=== PATIENT | male | born 1980 | race Caucasian/White ===

== ENCOUNTER → 2018-04-06 08:40 | Outpatient (CLI) | payer BC, SELFPAY ==
[2018-04-06 12:47] LABS: Alanine Aminotransferase 35 U/L (12-78); Albumin Level 4.1 gm/dL (3.4-5.0); Albumin/Globulin Ratio 1.3 (1.1-1.8); Alkaline Phosphatase 95 U/L (46-116); Aspartate Amino Transferase 20 U/L (15-37); Bilirubin,Total 0.6 mg/dL (0.2-1.0); Blood Urea Nitrogen 15 mg/dL (7-18); Calcium 8.9 mg/dL (8.5-10.1); Carbon Dioxide 32 mmol/L (21.0-32.0); Chloride 106 mmol/L (98-107); Chol/HDL Ratio 2.3 (1-3.5); Cholesterol 148 mg/dL (140-200); Creatinine,Serum 1.18 mg/dL (0.70-1.30); Estimated Glomerular Filt Rate 70 ml/min (>60); GFR (African American) 85 ML/MIN (>60); Globulin 3.1 gm/dl (1.3-3.2); Glucose 87 mg/dL (74-106); HDL Cholesterol 63 mg/dL (27-67); LDL Cholesterol 77 mg/dL (0-130); Sodium 144 mmol/L (136-145); Total Protein,Serum 7.2 gm/dL (6.4-8.2); Triglycerides 41 mg/dL (30-200); VLDL Cholesterol 8 mg/dL (0-40)
== END ==
PROVIDERS: PCP Internal Medicine Adolescent Medicine; Visit Provider Nurse Practitioner Family
DX: E78.00 Pure hypercholesterolemia, unspecified (principal)
CPT/HCPCS: 36415; 80053; 80061

== ENCOUNTER 2018-07-11 15:30 | Outpatient (RCR) | payer BC, SELFPAY ==
--- NOTE | 2018-06-24 15:55 | HMH.PTOPEV ---
PT Outpatient Evaluation Rehab PT Outpatient Evaluation Start: 06/24/18 15:43 Freq: Status: Active Protocol: Document 06/24/18 15:44 SAW (Rec: 06/24/18 15:55 SAW [id number]) Electronically Signed By Sidney Saha, PT 06/24/18 15:44 Outpatient Therapy Subjective History Subjective History Pt reports B LBP since laying sod in January 2018. Pt reports R >L sided LBP with some referred pain into B glut mm area. Pt reports no radicular s/s, only mm soreness following sitting, bending, lifting activities. Chief Complaint Pain Stiff Symptom Type Ache Throb Sharp Dull Symptoms Relieved By Rest/Positioning Symptoms Aggravated By Bending/Stooping Physical Activity Lifting Prior Functional Limitations Lifting Sitting Bending/Stooping Current Functional Limitations Lifting Driving Sitting Bending/Stooping Symptom Description Constant but Variable Level of pain today (0-10) 3 Pain scale - at its best (0-10) 2 Pain scale - at its worst (0-10) 5 Lumbopelvic Eval Posture Thoracic Spine Posture Standing Position Neutral Lumbar Spine Posture Standing Position Neutral Assistive device Assistive Devices None / NA Palapation tenderness bilateral lumbar spinal tenderness Yes: 2-3/4 paraspinal tenderness Yes: 3/4 buttock tenderness Yes: 1/4 Lumbar/Sacral Palpation Findings Tenderness Trigger Point Accessory Movement L-spine Vertebrae Accessory Movements Central P/A [place] that Elicit Symptoms L3 bilateral L4 bilateral L5 bilateral Range of Motion Lumbar Spine Active Flexion Range of 0-71 Motion (degrees) Lumbar Spine Active Extension Range of 0-20 Motion (degrees) Left Lumbar Spine Lateral Flexion Active 0-40 Range of Motion (degrees) Right Lumbar Spine Lateral Flexion 0-40 Active Range of Motion (degrees) Lumbar Spine ROM Limitations Pain Manual Muscle Test Bilateral Knee Extension Strength Grade 5 Normal Knee Flexion Strength Grade 5 Normal Hip Flexion Strength Grade 5 Normal Hip Abduc
== END 2018-07-11 15:35 | disposition home or self-care (01) ==
LOC: PT 15:30
PROVIDERS: Visit Provider Internal Medicine Adolescent Medicine
DX: M54.5 Low back pain (principal)
CPT/HCPCS: 97010; 97014; 97110; 97140; 97163; G0283

== ENCOUNTER → 2019-05-10 07:36 | Outpatient (CLI) | payer BC, SELFPAY ==
[2019-05-10 08:46] LABS: Basophils # 0.1 K/mm3 (0-0.2); Basophils % 1.3 % (0.1-2.0); Eosinophils # 0.2 K/mm3 (0.0-0.4); Eosinophils % 5.3 % (0.1-12.0); Hematocrit 48.2 % (42.0-52.0); Lymphocytes # 2.2 K/mm3 (0.7-4.5); Lymphocytes % 47.9 % (10-50); Mean Corpuscular HGB Conc 31.1 g/dL (31.8-35.4); Mean Corpuscular Hemoglobin 30.8 pg (27.0-31.2); Mean Corpuscular Volume 99.1 fl (80-94); Mean Platelet Volume 7.7 fl (7.4-10.4); Monocytes # 0.2 K/mm3 (0.1-1.0); Monocytes % 5.2 % (1.7-9.3); Neutrophils # 1.9 K/mm3 (1.8-7.8); Neutrophils % 40.3 % (37.0-80.0); Platelet Count 228 K/mm3 (142-424); Red Blood Count 4.86 M/mm3 (4.60-6.20); Red Cell Distribution Width 12.5 % (11.5-17.5); White Blood Count 4.6 K/mm3 (4.8-10.8)
[2019-05-10 09:38] LABS: Alanine Aminotransferase 29 U/L (12-78); Albumin Level 4.2 gm/dL (3.4-5.0); Albumin/Globulin Ratio 1.4 (1.1-1.8); Alkaline Phosphatase 74 U/L (46-116); Anion Gap 11.2 mEq/L (5-15); Aspartate Amino Transferase 19 U/L (15-37); Bilirubin,Total 0.9 mg/dL (0.2-1.0); Blood Urea Nitrogen 12 mg/dL (7-18); Calcium 8.8 mg/dL (8.5-10.1); Carbon Dioxide 31 mmol/L (21.0-32.0); Chloride 104 mmol/L (98-107); Chol/HDL Ratio 2.7 (1-3.5); Cholesterol 162 mg/dL (140-200); Creatinine,Serum 1.04 mg/dL (0.70-1.30); Estimated Glomerular Filt Rate 80 ml/min (>60); GFR (African American) 97 ML/MIN (>60); Globulin 3.1 gm/dl (1.3-3.2); Glucose 85 mg/dL (74-106); HDL Cholesterol 60 mg/dL (27-67); LDL Cholesterol 91 mg/dL (0-130); Potassium 4.2 mmoL/L (3.5-5.1); Sodium 142 mmol/L (136-145); Total Protein,Serum 7.3 gm/dL (6.4-8.2); Triglycerides 54 mg/dL (30-200); VLDL Cholesterol 11 mg/dL (0-40)
[2019-05-10 10:56] LABS: Erythrocyte Sedimentation Rate 48 mm/hr (0-15)
[2019-05-11 16:02] LABS: Creatine Kinase 155 U/L (39-308); Thyroid Stimulating Hormone 2.05 uIU/ml (0.358-3.740)
[2019-05-13 07:08] LABS: Vitamin B12 367 pg/mL (232-1245)
[2019-05-15 06:09] LABS: Anti-Cyclic Citrullinated Pept 6 units (0-19)
[2019-05-15 23:08] LABS: HLA-B27 Negative (.)
== END ==
PROVIDERS: PCP Internal Medicine Adolescent Medicine; Visit Provider Internal Medicine Adolescent Medicine
DX: E78.00 Pure hypercholesterolemia, unspecified (principal); M19.042 Primary osteoarthritis, left hand; R70.0 Elevated erythrocyte sedimentation rate; D72.819 Decreased white blood cell count, unspecified; M54.5 Low back pain; G89.29 Other chronic pain
CPT/HCPCS: 36415; 80053; 80061; 82550; 82607; 84443; 85025; 85651; 86200; 86812

== ENCOUNTER → 2020-09-18 08:59 | Outpatient (CLI) | payer BC, SELFPAY ==
[2020-09-18 09:16] LABS: Basophils # 0.1 K/mm3 (0-0.2); Basophils % 1.4 % (0.1-2.0); Eosinophils # 0.2 K/mm3 (0.0-0.4); Eosinophils % 5.2 % (0.1-12.0); Hematocrit 49.5 % (42.0-52.0); Hemoglobin 16.5 g/dL (14.1-18.0); Lymphocytes # 2.1 K/mm3 (0.7-4.5); Mean Corpuscular HGB Conc 33.3 g/dL (31.8-35.4); Mean Corpuscular Hemoglobin 32.1 pg (27.0-31.2); Mean Corpuscular Volume 96.5 fl (80-94); Mean Platelet Volume 7.5 fl (7.4-10.4); Monocytes # 0.3 K/mm3 (0.1-1.0); Monocytes % 5.3 % (1.7-9.3); Neutrophils % 42.1 % (37.0-80.0); Platelet Count 238 K/mm3 (142-424); Red Blood Count 5.13 M/mm3 (4.60-6.20); Red Cell Distribution Width 12.8 % (11.5-17.5); White Blood Count 4.6 K/mm3 (4.8-10.8)
[2020-09-18 10:28] LABS: Alanine Aminotransferase 23 U/L (12-78); Albumin Level 4.9 g/dl (3.5-5.0); Albumin/Globulin Ratio 1.7 (1.1-1.8); Alkaline Phosphatase 73 U/L (38-126); Anion Gap 13.3 mEq/L (5-15); Aspartate Amino Transferase 27 U/L (17-59); Bilirubin,Total 0.7 mg/dl (0.2-1.3); Blood Urea Nitrogen 12 mg/dl (9-20); Calcium 9.7 mg/dl (8.4-10.2); Carbon Dioxide 30 mmol/L (22.0-30.0); Chloride 102 mmol/L (98-107); Chol/HDL Ratio 2.9 (1-3.5); Cholesterol 181 mg/dl (140-200); Estimated Glomerular Filt Rate 83 ml/min (>60); GFR (African American) 101 ML/MIN (>60); Globulin 2.9 g/dL (1.3-3.2); Glucose 92 mg/dl (74-100); HDL Cholesterol 63 mg/dl (40-60); Potassium 4.3 mmoL/L (3.5-5.1); Sodium 141 mmol/L (136-145); Total Protein,Serum 7.8 g/dl (6.3-8.2); Triglycerides 76 mg/dl (30-150); VLDL Cholesterol 15 mg/dL (0-40)
[2020-09-18 10:39] LABS: Direct LDL Cholesterol 100.12 mg/dL (100-129)
== END ==
PROVIDERS: Visit Provider Internal Medicine Adolescent Medicine
DX: Z00.00 Encounter for general adult medical examination without abnormal findings (principal)
CPT/HCPCS: 36415; 80053; 80061; 85025

== ENCOUNTER 2021-03-25 15:30 | Outpatient (RCR) | payer BC, SELFPAY ==
--- NOTE | 2021-03-09 16:05 | HMH.PTOPEV ---
PT Outpatient Evaluation Rehab PT Outpatient Evaluation Start: 03/09/21 15:22 Freq: Status: Active Protocol: Document 03/09/21 15:22 SAW (Rec: 03/09/21 16:04 SAW [id number]) Electronically Signed By Sidney Saha, PT 03/09/21 15:22 Outpatient Therapy Subjective History Subjective History Pt reports insidious onset Left shoulder pain beginning in December. Pt reports exacerbation of anterior area shoulder w/wt. lifting, ailyn. bench press, and bicep curls. Pt reports pain starts in anterior left shoulder and at its worst will refer pain into bicep area. Chief Complaint Pain,Stiff,Weakness Symptom Type Ache,Sharp,Dull Symptoms Relieved By Rest/Positioning Symptoms Aggravated By Physical Activity,Lifting Prior Functional Limitations Lifting,Recreation Activity Current Functional Limitations Lifting,Recreation Activity Symptom Description Intermittent Level of pain today (0-10) 2 Pain scale - at its best (0-10) 0 Pain scale - at its worst (0-10) 5 Shoulder/Elbow Eval Shoulder Objective Measurements Palpation Tenderness Shoulder Palpation Findings Tenderness,Trigger Point Shoulder Palpation Overall Comment 3/4 anterior deltoid mm belly Shoulder ROM Left pain with active ROM shoulder exam left standard pain with passive ROM shoulder exam left standard full ROM shoulder exam standard left Shoulder MMT Anterior Deltoid Strength Grade 5 Normal Lower Trapezius Strength Grade 4 Good Middle Trapezius Strength Grade 4 Good Rhomboids Strength Grade 4 Good Serratus Anterior Strength Grade 4 Good Shoulder Flexion Strength Grade 4 Good Shoulder External Rotation Strength 4 Good Grade Shoulder Internal Rotation Strength 5 Normal Grade Subscapularis Muscle Grade 4 Good Supraspinatus Strength Grade 4- Good- Shoulder Special Tests Shoulder Drop Arm Test Negative Left Shoulder Cross-Over Impingement Test Negative Left Shoulder Empty Can (Supraspinatus) Test Positive Left Shoulder Taylor-Ebenezer Impingement Negative Left Test Shoulder Neer Impingement Test Negative Left Shoulder Motley Test Negative Left Shoulder Speed's Sign Test Negative Left Elbow Objective Measurements Elbow MMT Left Elbow Flexion Strength Grade 5 Normal Elbow Extension Strength Grade 5 Normal Outpatient Therapy Assessment Impairments Problems/Impairmments Palpati
== END 2021-03-25 16:47 | disposition home or self-care (01) ==
LOC: PT 15:30
PROVIDERS: PCP Internal Medicine Adolescent Medicine; Visit Provider Internal Medicine Adolescent Medicine
DX: M77.8 Other enthesopathies, not elsewhere classified (principal)
CPT/HCPCS: 20560; 97010; 97014; 97033; 97035; 97110; 97163; G0283

== ENCOUNTER → 2023-04-06 11:11 | Outpatient (CLI) | payer BC, SELFPAY ==
[2023-04-06 11:55] LABS: Basophils # 0.1 K/mm3 (0-0.2); Basophils % 0.8 % (0.1-2.0); Eosinophils # 0.2 K/mm3 (0.0-0.4); Eosinophils % 3.8 % (0.1-12.0); Hematocrit 46.6 % (42.0-52.0); Hemoglobin 15.4 g/dL (14.1-18.0); Lymphocytes # 2.8 K/mm3 (0.7-4.5); Lymphocytes % 47.5 % (10-50); Mean Corpuscular HGB Conc 33.1 g/dL (31.8-35.4); Mean Corpuscular Volume 96.7 fl (80-94); Mean Platelet Volume 7.4 fl (7.4-10.4); Monocytes # 0.3 K/mm3 (0.1-1.0); Monocytes % 5.3 % (1.7-9.3); Neutrophils # 2.5 K/mm3 (1.8-7.8); Neutrophils % 42.7 % (37.0-80.0); Platelet Count 218 K/mm3 (142-424); Red Blood Count 4.82 M/mm3 (4.60-6.20); Red Cell Distribution Width 12.4 % (11.5-17.5); White Blood Count 5.9 K/mm3 (4.8-10.8)
[2023-04-06 12:31] LABS: Alanine Aminotransferase 32 U/L (12-78); Albumin Level 4.6 g/dl (3.5-5.0); Albumin/Globulin Ratio 1.6 (1.1-1.8); Alkaline Phosphatase 68 U/L (38-126); Anion Gap 10.8 mEq/L (5-15); Aspartate Amino Transferase 29 U/L (17-59); Blood Urea Nitrogen 17 mg/dl (9-20); Carbon Dioxide 32 mmol/L (22.0-30.0); Chloride 98 mmol/L (98-107); Chol/HDL Ratio 3.1 (1-3.5); Cholesterol 202 mg/dl (140-200); Estimated Glomerular Filt Rate 74 ml/min (>60); GFR (African American) 89 ML/MIN (>60); Globulin 2.8 g/dL (1.3-3.2); Glucose 91 mg/dl (74-100); HDL Cholesterol 65 mg/dl (40-60); Potassium 3.8 mmoL/L (3.5-5.1); Sodium 137 mmol/L (136-145); Total Protein,Serum 7.4 g/dl (6.3-8.2); Triglycerides 102 mg/dl (30-150); VLDL Cholesterol 20 mg/dL (0-40)
[2023-04-06 12:41] LABS: Direct LDL Cholesterol 105.94 mg/dL (100-129)
== END ==
PROVIDERS: PCP Internal Medicine Adolescent Medicine; Visit Provider Internal Medicine Adolescent Medicine
DX: Z00.00 Encounter for general adult medical examination without abnormal findings (principal)
CPT/HCPCS: 36415; 80053; 80061; 85025

== ENCOUNTER → 2023-05-24 15:00 | Outpatient (CLI) | payer BC, SELFPAY ==
--- NOTE | 2023-05-24 15:02 | XR_ITS ---
FINAL REPORT CLINICAL HISTORY: lt elbow pain COMPARISON: None FINDINGS: AP, oblique, and lateral views of the left elbow were obtained. There is no prior exam for comparison. There is no acute fracture or dislocation. Joint space is preserved. There is no joint effusion or other soft tissue abnormality. IMPRESSION: No acute osseous abnormality of the left elbow. Reviewed, Interpreted and Dictated by Nicolas Campos III, MD Transcribed by Luna Tello Authenticated and [facility]
== END ==
PROVIDERS: PCP Internal Medicine Adolescent Medicine; Visit Provider Orthopaedic Surgery
DX: M25.522 Pain in left elbow (principal)
CPT/HCPCS: 73080

== ENCOUNTER 2024-04-26 09:13 | Outpatient (CLI) | payer BC, SELFPAY ==
[2024-04-26 09:32] LABS: Basophils # 0.1 K/mm3 (0-0.2); Basophils % 1.7 % (0.1-2.0); Eosinophils # 0.2 K/mm3 (0.0-0.4); Eosinophils % 4.8 % (0.1-12.0); Hemoglobin 15.6 g/dL (14.1-18.0); Lymphocytes # 1.9 K/mm3 (0.7-4.5); Lymphocytes % 40.6 % (10-50); Mean Corpuscular HGB Conc 31.9 g/dL (31.8-35.4); Mean Corpuscular Hemoglobin 32.1 pg (27.0-31.2); Mean Corpuscular Volume 100.9 fl (80-94); Mean Platelet Volume 7.9 fl (7.4-10.4); Monocytes # 0.2 K/mm3 (0.1-1.0); Monocytes % 5.2 % (1.7-9.3); Neutrophils # 2.2 K/mm3 (1.8-7.8); Neutrophils % 47.6 % (37.0-80.0); Platelet Count 232 K/mm3 (142-424); Red Blood Count 4.86 M/mm3 (4.60-6.20); Red Cell Distribution Width 12.7 % (11.5-17.5); White Blood Count 4.6 K/mm3 (4.8-10.8)
[2024-04-26 09:54] LABS: Alanine Aminotransferase 59 U/L (12-78); Albumin Level 4.4 g/dl (3.5-5.0); Albumin/Globulin Ratio 1.6 (1.1-1.8); Alkaline Phosphatase 60 U/L (38-126); Anion Gap 9.1 mEq/L (5-15); Aspartate Amino Transferase 58 U/L (17-59); Bilirubin,Total 0.7 mg/dl (0.2-1.3); Blood Urea Nitrogen 19 mg/dl (9-20); Calcium 9.1 mg/dl (8.4-10.2); Carbon Dioxide 29 mmol/L (22.0-30.0); Chloride 106 mmol/L (98-107); Chol/HDL Ratio 2.7 (1-3.5); Cholesterol 191 mg/dl (140-200); Estimated Glomerular Filt Rate 82 ml/min (>60); GFR (African American) 99 ML/MIN (>60); Globulin 2.7 g/dL (1.3-3.2); Glucose 101 mg/dl (74-100); HDL Cholesterol 70 mg/dl (40-60); Potassium 4.1 mmoL/L (3.5-5.1); Sodium 140 mmol/L (136-145); Total Protein,Serum 7.1 g/dl (6.3-8.2); Triglycerides 69 mg/dl (30-150); VLDL Cholesterol 14 mg/dL (0-40)
[2024-04-26 10:31] LABS: Hemoglobin A1C 5.8 % (4.0-6.0)
== END 2024-04-26 23:59 | disposition home or self-care (01) ==
PROVIDERS: PCP Internal Medicine Adolescent Medicine; Visit Provider Internal Medicine Adolescent Medicine
DX: Z00.00 Encounter for general adult medical examination without abnormal findings (principal)
CPT/HCPCS: 36415; 80050; 80053; 80061; 83036; 84443; 85025

== ENCOUNTER 2024-05-05 16:09 | Outpatient (CLI) | payer BC, SELFPAY ==
--- NOTE | 2024-05-05 16:13 | XR_ITS ---
FINAL REPORT CLINICAL HISTORY: METAL IN EYES.... FOR MRI COMPARISON: none FINDINGS: ORBITS Look up and look down views were obtained. No fracture is identified. The paranasal sinuses are clear. No metallic foreign body is identified. IMPRESSION: No acute process. Reviewed, Interpreted and Dictated by Yoel Valentin MD Transcribed by Emilia Davis Authenticated and [facility]
== END 2024-05-05 23:59 | disposition home or self-care (01) ==
LOC: RAD 16:09
PROVIDERS: PCP Internal Medicine Adolescent Medicine; Visit Provider Physician Assistant
DX: M25.522 Pain in left elbow (principal)
CPT/HCPCS: 70200

== ENCOUNTER 2024-05-06 08:40 | Outpatient (CLI) | payer BC, SELFPAY ==
--- NOTE | 2024-05-06 08:41 | MR_ITS ---
FINAL REPORT TECHNIQUE: Multiplanar MR without contrast CLINICAL HISTORY: left elbow pain, posterior no injury FINDINGS: The marrow signal pattern is normal. Specifically there is no evidence of bone contusion or fracture. A physiologic joint effusion is present. There is no osteochondral defect. Medial and lateral collateral ligaments are intact. Biceps and triceps tendons are unremarkable. Flexor tendons have a normal appearance. There is tendinitis and partial tear at the lateral epicondyle attachment. IMPRESSION: Tendinitis and partial tear at the lateral epicondyle attachment. Reviewed, Interpreted and Dictated by Yoel Valentin MD Transcribed by Valerie Russo Authenticated and [facility]
== END 2024-05-06 23:59 | disposition home or self-care (01) ==
LOC: RAD 08:41
PROVIDERS: PCP Internal Medicine Adolescent Medicine; Visit Provider Physician Assistant
DX: M25.522 Pain in left elbow (principal)
CPT/HCPCS: 73221

== ENCOUNTER 2024-06-11 15:00 | Outpatient (RCR) | payer BC, SELFPAY ==
--- NOTE | 2024-02-12 08:50 | HMH.OTOPEV ---
OT Inpatient Evaluation Rehab OT Outpatient Eval Start: 02/12/24 08:27 Freq: Status: Active Protocol: Document 02/12/24 08:27 RMARSHALL (Rec: 02/12/24 08:50 [facility] [id number]) E-signed By Dionne Khalil, OT Outpatient Therapy Subjective History Subjective History Pt is a 43 year old male who reports to therapy for initial evaluation to left elbow. Pt reports he began having pain in left elbow in fall 2022 after throwing hay av. Since then, pt has had consistent pain with use of LUE. Pt did have an injection in elbow from ortho. The injection improved his pain for ~3 months, but the pain did return. Pt is very active with weight lifting and works radio time sales supervisor in maintenance at . His job and extra curricular activities require constant repetitive motion of bilateral UE's. Pt is right hand dominant, but pt's left hand control analyst strength is significantly declined. Pt's AROM at left elbow is within functional limits, but pt's strength is slightly declined. Pt will continue to be seen in order to address all deficits. STG L hand control analyst strength: 85 lbs LTG L hand control analyst strength: 100 lbs New diagnosis of cancer in past 12 No months? Chief Complaint Pain,Stiff,Weakness,Decreased Lamina Searcher Strength Symptom Type Ache,Throb,Sharp Symptoms Relieved By Rest/Positioning Symptoms Aggravated By Physical Activity,Lifting Prior Functional Limitations None Current Functional Limitations Reaching,Lifting,Housework Symptom Description Intermittent,Activity Dependent Level of pain today (0-10) 0 Pain scale - at its best (0-10) 0 Pain scale - at its worst (0-10) 8 Shoulder/Elbow Eval Shoulder Objective Measurements Elbow Objective Measurements Elbow ROM Left Elbow Extension Active Range of Motion ( -3 degrees) Elbow Flexion Active Range of Motion ( 135 degrees) Elbow Pronation of Forearm Range of 90 Motion (degrees) Elbow Supination of Forearm Range of 90 Motion (degrees) Elbow MMT Elbow Flexion Strength Grade 4- Good- Elbow Extension Strength Grade 4- Good- Supination Strength Grade 4- Good- Pronation Strength Grade 4- Good- Wrist/Hand Eval Lamina Searcher/Pinch Strength Left Lamina Searcher Strength Measurement (lbs) 115 Right Lamina Searcher Strength Measurement (lbs) 118 QuickDASH Activities Please rate your ability to do the following activities in the last week by selecting the number below the appropriate response. 1. Open a tight or new jar. Severe difficulty 2. Do heavy manager product management (e.g., wash Moderate difficulty ureña, floors). 3. Carry a shopping bag or briefcase. Mild difficulty 4. Wash your back. Mild difficulty 5. Use a knife to cut food. No difficulty 6. Recreational activities in which you Moderate difficulty take some force or impact through your arm, shoulder, or hand (e.g., golf, hammering, tennis, etc.). 7. During the past week, to what extent Not at all has your arm, shoulder or hand problem interfered with your normal social activities with family, friends, neighbors or groups? 8. During the past week, were you Slightly limited limited in your work or other regular daily activites as a result of your arm, shoulder or hand problem? 9. Arm, shoulder or hand pain. Moderate 10. Tingling (pins and needles) in your None arm, shoulder or hand. 11. During the past week, how much No difficulty difficulty have you had sleeping because of the pain in your arm, shoulder or hand? Quick DASH 23 Work Module (optional) The following questions ask about the impact of your arm, shoulder or hand problem on your ability to work (including homemaking if that is your main work role). 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 Yes 1. Using your usual technique for your Moderate difficulty work? 2. Doing your usual work because of arm, Severe difficulty shoulder or hand pain? 3. Doing your work as well as you would Moderate difficulty like? 4. Spending your usual amount of time Mild difficulty doing your work? Quick Dash Work Module Score 12 Sports/Performing Arts Module (optional) The following questions relate to the impact of your arm, shoulder or hand problem on playing your musical instrument or sport or both. If you play more than one sport or instrument (or play both), please answer with respect to the activity which is most important to you. Please indicate the sport or instrument Weight lifting which is most important to you: Do you play a sport or instrument? No 1. Using your usual technique for Moderate difficulty playing your instrument or sport? 2. Playing your musical instrument or Severe difficulty sport because of arm, shoulder or hand pain? 3. Playing your musical instrument or Unable sport as well as you would like? 4. Spending your usual amount of time Moderate difficulty practicing or playing your instrument or sport? Quick Dash Sports/Performing Art Score 15 OT Outpatient Assessment Impairments Problems/Impairments Palpation Tenderness,Impaired Range of Motion,Impaired Strength,Impaired Endurance, Impaired Lifting,Impaired Household Care,Impaired Recreational Activities, Impaired Work Activities, Subjective C/O Pain Prognosis Rehab Potential Good Clinical Impression Consistent with Diagnosis Yes Short Term Goals Number of Weeks 3 Increase Range of Motion Yes: Flex: 140 Ext: 0 Increase Strength Yes: 4/5 throughout left elbow Increase Endurance Yes: Pt will tolerate L elbow/ wrist exercises for ~10 minutes prior to rest. Decrease Subjective C/O Pain Yes: 6/10 at worst Patient to be Ind w/ HEP Yes: AROM/AAROM stretches Improve Quick Dash Score Yes: Activities: 20 or below Heat Treat Supervisor Goals Number of Weeks 6 Increase Range of Motion Yes: Flex: 145 Increase Strength Yes: 5/5 throughout left elbow Increase Endurance Yes: Pt will tolerate L elbow/ wrist exercises for ~20 minutes prior to rest. Decrease Subjective C/O Pain Yes: 10/20 at worst Patient to be Ind w/ Advanced HEP Yes: Advanced strengthening Improve Quick Dash Score Yes: Activities: 15 or below Outpatient Therapy Plan of Care Treatment Plan May Include Therapeutic Exercise Including Home Yes Exercise Program Manual Therapy Techniques Yes Neuromuscular Re-education Yes Therapeutic Activities to Return to Yes Previous Functional/Work Level ADL/Self Care Education Yes Thermal Modalities Yes Electrical Stimulation Yes Ultrasound/Phonophoresis Yes Iontophoresis Yes Orthotics/Bracing/Splinting Yes Massage Yes Eval/Re-Eval Yes Frequency Times per week 2 Duration Number of Weeks 6 Addendums This patient is a candidate for social No or vocational rehab? Patient/Guardian verbally acknowledges Yes understanding of treatment program and consents to further treatment? Patient/Guardian verbally acknowledges Yes understanding of diagnosis, prognosis and goals for treatment? Eval Complexity OT Charge 19043 - Moderate Complexity PHYSICIAN CERTIFICATION: I certify the specified therapy services for Candido Cortes are required, authorized, and reviewed every 30 days.
--- NOTE | 2024-03-11 15:59 | HMH.RHREAS ---
Rehab Reassessment Rehab OP Re-assessment Start: 02/12/24 08:26 Freq: Status: Active Protocol: Document 03/11/24 14:51 RMARSHALL (Rec: 03/11/24 15:59 RMARSHALL [id number]) E-signed By Dionne Khalil OT Rehab Re-assessment Subjective Subjective It has been more fired up lately. Objective Objective Notes Pt continues to be seen weekly in order to address left elbow deficits. Each session, pt receives soft tissue massage to lateral aspect and PROM manual stretching to left elbow in all planes: flexion, extension, supination, and pronation. Pt also engages in AROM, AAROM, and strengthening exercises to left elbow, wrist, and supervisor spinning strength. Therapist also provides modalities such as phonophoresis, e-stim, and hybresis in order to decrease pain/inflammation at left lateral aspect of elbow. Assessment Progress Assessment Slower Than Expected Assessment Notes Pt is consistent about attending therapy sessions. However, pt reports he has still been experiencing 8/10 pain at times especially during repetitive motions. Pt 's supervisor spinning strength continues to remain declined from baseline. Pt's AROM has improved since initial evaluation. Current AROM L elbow Flex: 140 degrees Ext: 0 degrees L hand supervisor spinning strength: 60lbs Patient goals met ST,3, and 5 Goals Not Met See below Revised Goals STG L hand supervisor spinning strength: 85 lbs LTG L hand supervisor spinning strength: [address], 4, and 6 LT-6 Plan Plan Continue with OT plan of care at this time. Frequency of Therapy 2x's a week Duration of therapy 4 more weeks Time and Billing Re-Eval Time 11 Re-Eval Billing Units 1 PHYSICIAN CERTIFICATION: I certify the specified therapy services for Candido Cortes are required, authorized, and reviewed every 30 days.
--- NOTE | 2024-04-07 15:05 | HMH.RHREAS ---
Rehab Reassessment Rehab OP Re-assessment Start: 02/12/24 08:26 Freq: Status: Active Protocol: Document 04/07/24 14:53 ERASTO (Rec: 04/07/24 15:05 RMMONSERRATHALL [id number]) E-signed By Dionne Khalil OT Rehab Re-assessment Subjective Subjective I do feel improvements in it. Objective Objective Notes Pt continues to be seen weekly in order to address left elbow deficits. Each session, pt receives soft tissue massage to lateral aspect and PROM manual stretching to left elbow in all planes: flexion, extension, supination, and pronation. Pt also engages in AROM, AAROM, and strengthening exercises to left elbow, wrist, and child care lead teacher strength. Therapist also provides modalities such as phonophoresis, e-stim, and hybresis in order to decrease pain/inflammation at left lateral aspect of elbow. Assessment Progress Assessment Slower Than Expected Assessment Notes Pt is consistent about attending therapy sessions. General use of the arm reports a 4/10 pain at times especially during repetitive motions. Pt also has pain when gripping items and having to lift them up into elbow flexion. Pt has seen ortho for an evaluation ~2 weeks ago ; they wanted patient to wear wrist cock up brace and continue with therapy. No injection was provided at that time. Pt's child care lead teacher strength has improved significantly, but patient continues to have pain when testing child care lead teacher strength. Current AROM L elbow Flex: 140 degrees Ext: 0 degrees L hand child care lead teacher strength: [address]-6 Goals Not Met See below Revised Goals LTG L hand child care lead teacher strength: 120 lbs LT-6 Plan Plan Continue with OT plan of care at this time. Frequency of Therapy 2x's a week Duration of therapy 4 more weeks Time and Billing Re-Eval Time 9 Re-Eval Billing Units 1 PHYSICIAN CERTIFICATION: I certify the specified therapy services for Candido Cortes are required, authorized, and reviewed every 30 days.
--- NOTE | 2024-05-16 07:57 | HMH.RHREAS ---
Rehab Reassessment Rehab OP Re-assessment Start: 02/12/24 08:26 Freq: Status: Active Protocol: Document 05/15/24 16:15 RMARSHALL (Rec: 05/16/24 07:57 RMARSHALL [id number]) E-signed By Dionne Khalil OT Rehab Re-assessment Subjective Subjective It is much better than it used to be. Objective Objective Notes Pt continues to be seen weekly in order to address left elbow deficits. Each session, pt receives soft tissue massage to lateral aspect and PROM manual stretching to left elbow in all planes: flexion, extension, supination, and pronation. Pt also engages in AROM, AAROM, and strengthening exercises to left elbow, wrist, and library paraprofessional strength. Therapist also provides modalities such as phonophoresis, e-stim, and hybresis in order to decrease pain/inflammation at left lateral aspect of elbow. Assessment Progress Assessment Slower Than Expected Assessment Notes Pt is consistent about attending therapy sessions. General use of the arm reports a 4/10 pain at times especially during repetitive motions. Pt also has pain when gripping items and having to lift them up into elbow flexion. Pt returned to ortho this week to follow up after completing a MRI due to continued pain. The MRI had findings of tendinitis and partial tear at the lateral epicondyle attachment ~20%. Ortho and pt discussed options at length. Ortho recommends continued OT in order to progress in strength and decrease pain. Pt's library paraprofessional strength remains the same as last re-assessment, but he continues to have pain when gripping. He also reports more tenderness with AROM than previous re-assessment. Pt's AROM was slightly declined from last re-assessment. Therapist agreeable with plan to continue addressing strength and pain relief of left elbow. Current AROM L elbow Flex: 128 degrees Ext: -2 degrees L hand library paraprofessional strength: [address]-6 Goals Not Met See below Revised Goals LTG L hand library paraprofessional strength: 120 lbs LT-6 Plan Plan Continue with OT plan of care at this time. Frequency of Therapy 2x's a week Duration of therapy 4 more weeks Time and Billing Re-Eval Time 11 Re-Eval Billing Units 1 PHYSICIAN CERTIFICATION: I certify the specified therapy services for Candido Vern Sophia are required, authorized, and reviewed every 30 days.
--- NOTE | 2024-06-11 16:06 | HMH.RHREAS ---
Rehab Reassessment Rehab OP Re-assessment Start: 02/12/24 08:26 Freq: Status: Active Protocol: Document 06/11/24 16:00 RMDEUCE (Rec: 06/11/24 16:06 RMARSHALL [id number]) E-signed By Dionne Khalil OT Rehab Re-assessment Subjective Subjective It's doing a lot better. Objective Objective Notes Pt continues to be seen weekly in order to address left elbow deficits. Each session, pt receives soft tissue massage to lateral aspect and PROM manual stretching to left elbow in all planes: flexion, extension, supination, and pronation. Pt also engages in AROM, AAROM, and strengthening exercises to left elbow, wrist, and train planner strength. Therapist also provides modalities such as phonophoresis, e-stim, and hybresis in order to decrease pain/inflammation at left lateral aspect of elbow. Assessment Progress Assessment Progressing as Expected Assessment Notes Pt is consistent about attending therapy sessions. General use of the arm pt reports a 0-1/10 pain. At rest he has 0/10 pain. Pt reports he does feel overall improvement in the arm with day to day tasks. Pt has also returned to exercising with minimal pain. Pt's train planner strength remains the same as last re-assessment. Pt's AROM and strength have also improved from previous re- assessment as well. Current AROM L elbow Flex: 142 degrees Ext: 0 degrees L hand train planner strength: 112 [address] goals [address]-6 LT-6 Goals Not Met See below Revised Goals LTG L hand train planner strength: 120 lbs Plan Plan Pt and therapist are agreeable to hold on therapy tx at this time. If pt begins to feel an increase in pain/AROM he will return for re-evaluation before his 30 day radha. Time and Billing Re-Eval Time 9 Re-Eval Billing Units 1 Charge for OT reassessment? Yes PHYSICIAN CERTIFICATION: I certify the specified therapy services for Candido Cortes are required, authorized, and reviewed every 30 days.
== END 2024-06-11 23:59 | disposition home or self-care (01) ==
LOC: OT 15:00
PROVIDERS: Visit Provider Internal Medicine Adolescent Medicine
DX: M77.8 Other enthesopathies, not elsewhere classified (principal)
CPT/HCPCS: 97010; 97014; 97035; 97110; 97140; 97164; 97166; 97168; 97530; G0283

== ENCOUNTER 2025-04-25 08:44 | Outpatient (CLI) | payer BC, SELFPAY ==
--- OUTSIDE RECORDS SUMMARY | 2025-04-25 08:50 | XMS_ITS | Clinical Summary ---
Author Organization [facility] Address [address] [place] [address] Care Team Providers Care Network Desktop Support Specialist Name Role Phone Unavailable Primary Care Provider Unavailabl e Social History Tobacco Use Types Packs/Day Years Used Date Smoking Tobacco: Never Assessed Sex and Gender Information Value Date Recorded Sex Assigned at Not on file Legal Sex Male 8:33 PM EDT Gender Identity Not on file Sexual Orientation Not on file Plan of Treatment Health Maintenance Due Date Last Done Comments [facility]-Depression Screening 1981 [facility]-Infant/Child/Adol SDOH Screenings 1981 [facility]-Varicella Vaccines (1 of 2 - 13+ 2-dose series) 1994 [facility]-DTaP,Tdap,and Td Vaccines (2 - Tdap) 10/20/1996 10/19/1996 [facility]- SDOH Screenings 1999 [facility]-Adult SDOH Screenings 1999 [facility]-Hepatitis B Vaccines (1 of 3 - 19+ 3-dose series) 2000 HPV Vaccines (1 - 3-dose SCDM series) 2008 [id number] Vaccine (3 - 2024- season) 2025 04/08/2021, 03/16/2021 [facility]-Influenza Vaccine (#1) 2025 [facility]-Zoster Vaccines (1 of 2) 2031 [facility]-Hepatitis A Vaccines Aged Out 019, 07/27/2018 No longer eligible based on patient's age to complete this topic [facility]-HIB Vaccines Aged Out No longer e ligible based on patient's age to complete this topic [facility]-IPV Vaccines Aged Out No longer e ligible based on patient's age to complete this topic [facility]-Pneumococcal Vaccine: Pediatrics (0 to 5 Years) and At-Risk Patients (6 to 49 Years) Aged Out No longer eligible b ased on patient's age to complete this topic [facility]-Rotavirus Vaccines Aged Out No lo nger eligible based on patient's age to complete this topic
--- OUTSIDE RECORDS SUMMARY | 2025-04-25 08:50 | XMS_ITS | Encounter Summary ---
Author Organization [facility] Address [address] [place] [address] Care Team Providers Care Vascular Technologist Sonographer Name Role Phone Unavailable Primary Care Provider Unavailabl e Reason for Referral * Consultation (Routine) - Authorized Specialty Diagnoses / Procedures Referred By Meghann harris Referred To Contact Sports Medicine Diagnoses Lateral epicondylitis of left elbow Clay Peck MD [address] [place] [address] Phone: tel: fax: [facility] Orthopaedic Surgery & Sports Medicine [address] [place] [address], [address] [place] [address] Phone: tel: fax: Referral ID Status Reason Start Date Expiration Date Visits Requested Visits Authorized [id number] Authorized Specialty Services Required 05/07/2024 11/06/2025 1 1 Encounter Details Date Type Department Care Team (Latest Contact Info) Description 05/07/2024 Community [facility] [address] [place] [address] Clay Peck MD [address] [place] [address] Lateral epicondylitis of left elbow (Primary Dx) Social History Tobacco Use Types Packs/Day Years Used Date Smoking Tobacco: Never Assessed Sex and Gender Information Value Date Recorded Sex Assigned at Not on file Legal Sex Male 8:33 PM EDT Gender Identity Not on file Sexual Orientation Not on file documented as of this encounter Plan of Treatment Scheduled Referrals Name Type Priority Associated Diagnoses Orde r Schedule Ambulatory referral to Orthopaedics Sports Medicine Outpatient Referral Routine Lateral epicondylitis of left elbow Expected: 05/07/2024 (Approximate), Expires: 11/04/2025 documented as of this encounter Visit Diagnoses Diagnosis Lateral epicondylitis of left elbow- Primary documented in this encounter
[2025-04-25 09:20] LABS: Hematocrit 46.5 % (42.0-52.0); Hemoglobin 15.6 g/dL (14.1-18.0); Immature Granulocytes % 0.2 %; Mean Corpuscular HGB Conc 33.5 g/dL (31.8-35.4); Mean Corpuscular Hemoglobin 32.0 pg (27.0-31.2); Mean Corpuscular Volume 95.5 fl (80-94); Nucleated Red Blood Cells % 0 %; Platelet Count 231 K/mm3 (142-424); Red Blood Count 4.87 M/mm3 (4.60-6.20); Red Cell Distribution Width-SD 42.5 fL; White Blood Count 5.2 K/mm3 (4.8-10.8)
[2025-04-25 09:43] LABS: Alanine Aminotransferase 110 U/L (12-78); Albumin Level 4.8 g/dl (3.5-5.0); Albumin/Globulin Ratio 1.7 (1.1-1.8); Alkaline Phosphatase 64 U/L (38-126); Anion Gap 12.1 mEq/L (5-15); Aspartate Amino Transferase 76 U/L (17-59); Bilirubin,Total 1.0 mg/dl (0.2-1.3); Blood Urea Nitrogen 13 mg/dl (9-20); Calcium 9.4 mg/dl (8.4-10.2); Carbon Dioxide 30 mmol/L (22.0-30.0); Chloride 103 mmol/L (98-107); Cholesterol 170 mg/dl (140-200); Creatinine,Serum 0.90 mg/dl (0.66-1.25); Estimated Glomerular Filt Rate 92 ml/min (>60); GFR (African American) 111 ML/MIN (>60); Globulin 2.8 g/dL (1.3-3.2); Glucose 100 mg/dl (74-100); HDL Cholesterol 66 mg/dl (40-60); Potassium 4.1 mmoL/L (3.5-5.1); Sodium 141 mmol/L (136-145); Total Protein,Serum 7.6 g/dl (6.3-8.2); Triglycerides 60 mg/dl (30-150)
[2025-04-25 10:34] LABS: Vitamin B12 639 pg/mL (239-931)
[2025-04-25 10:42] LABS: Hemoglobin A1C 5.5 % (4.0-6.0)
[2025-04-25 10:54] LABS: Folate 12.50 ng/mL
== END 2025-04-25 23:59 | disposition home or self-care (01) ==
LOC: LAB 08:49
PROVIDERS: PCP Internal Medicine Adolescent Medicine; Visit Provider Internal Medicine Adolescent Medicine
DX: Z00.00 Encounter for general adult medical examination without abnormal findings (principal); D75.89 Other specified diseases of blood and blood-forming organs
CPT/HCPCS: 36415; 80053; 80061; 82607; 82746; 83036; 85025

== ENCOUNTER 2025-07-31 08:02 | Outpatient (CLI) | payer BC, SELFPAY ==
--- OUTSIDE RECORDS SUMMARY | 2025-07-31 08:04 | XMS_ITS | Clinical Summary ---
Author Organization [facility] Address [address] [place] [address] Care Team Providers Care Turbo Generator Oiler Name Role Phone Unavailable Primary Care Provider [...] of 3 - 19+ 3-dose series) 2000 [id number] Vaccine (3 - 2024- season) 2025 04/08/2021, 03/16/2021 [facility]-Influenza Vaccine (#1) 2025 [facility]-Zoster Vaccines (1 of 2) 2031 [facility]-Hepatitis A Vaccines Aged Out 019, 07/27/2018 No longer eligible based on patient's age to complete this topic HPV Vaccines (No Doses Required) Completed [facility]-HIB Vaccines Aged Out No longer e [...]
--- OUTSIDE RECORDS SUMMARY | 2025-07-31 08:04 | XMS_ITS | Encounter Summary ---
Author Organization [facility] Address [address] [place] [address] Care Team Providers Care Public Finance Specialist Name Role Phone Unavailable Primary Care Provider Unavailabl e Reason for Referral * Consultation (Routine) - Authorized Specialty Diagnoses / Procedures Referred By Meghann harris Referred To Contact Sports Medicine Diagnoses Lateral epicondylitis of left elbow Clay Peck MD [address] [place] [address] Phone: tel: fax: [facility] Orthopaedic Surgery & Sports Medicine [address] [place] [address], [address] [place] [address] Phone: tel: fax: Referral ID Status Reason Start Date Expiration Date Visits Requested Visits Authorized [id number] Authorized Specialty Services Required 05/07/2024 11/06/2025 1 1 Encounter Details Date Type Department Care Team (Latest Contact Info) Description 05/07/2024 Community [facility] Community Practice [address] [place] [address] Clay Peck MD [address] [place] [address] Lateral epicondylitis of left elbow (Primary Dx) [...]
[2025-07-31 08:36] LABS: Hematocrit 45.7 % (42.0-52.0); Hemoglobin 15.4 g/dL (14.1-18.0); Immature Granulocytes % 0.2 %; Mean Corpuscular HGB Conc 33.7 g/dL (31.8-35.4); Mean Corpuscular Hemoglobin 31.9 pg (27.0-31.2); Mean Corpuscular Volume 94.6 fl (80-94); Nucleated Red Blood Cells % 0 %; Platelet Count 228 K/mm3 (142-424); Red Blood Count 4.83 M/mm3 (4.60-6.20); Red Cell Distribution Width-SD 41.0 fL; White Blood Count 5.1 K/mm3 (4.8-10.8)
[2025-07-31 08:59] LABS: Albumin Level 4.7 g/dl (3.5-5.0); Chloride 99 mmol/L (98-107); Sodium 139 mmol/L (136-145)
[2025-07-31 09:00] LABS: Potassium 4.1 mmoL/L (3.5-5.1)
[2025-07-31 09:02] LABS: Alanine Aminotransferase 65 U/L (12-78); Albumin/Globulin Ratio 1.7 (1.1-1.8); Alkaline Phosphatase 60 U/L (38-126); Anion Gap 13.1 mEq/L (5-15); Aspartate Amino Transferase 45 U/L (17-59); Bilirubin,Total 0.8 mg/dl (0.2-1.3); Blood Urea Nitrogen 15 mg/dl (9-20); Carbon Dioxide 31 mmol/L (22.0-30.0); Cholesterol 233 mg/dl (140-200); Creatinine,Serum 1.10 mg/dl (0.66-1.25); Estimated Glomerular Filt Rate 73 ml/min (>60); GFR (African American) 88 ML/MIN (>60); Globulin 2.7 g/dL (1.3-3.2); Total Protein,Serum 7.4 g/dl (6.3-8.2); Triglycerides 75 mg/dl (30-150)
[2025-07-31 09:03] LABS: Calcium 9.6 mg/dl (8.4-10.2); Glucose 100 mg/dl (74-100); HDL Cholesterol 64 mg/dl (40-60)
[2025-07-31 09:36] LABS: Thyroid Stimulating Hormone 1.59 uIU/mL (0.465-4.68)
[2025-07-31 09:37] LABS: Ferritin 171 ng/ml (17.9-464)
== END 2025-07-31 23:59 | disposition home or self-care (01) ==
LOC: LAB 08:02
PROVIDERS: PCP Internal Medicine Adolescent Medicine; Visit Provider Nurse Practitioner Family
DX: E78.00 Pure hypercholesterolemia, unspecified (principal); R74.8 Abnormal levels of other serum enzymes
CPT/HCPCS: 36415; 80053; 80061; 82728; 84443; 85025